=== PATIENT | male | born 1960 | race African-American/Black ===

== ENCOUNTER 2019-03-27 10:38 | Emergency (ER) | payer BC ==
[~2019-03-27] VITALS: Ht 175.3 cm; Wt 115.7 kg
[2019-03-27] MEDS ORDERED: COLCHICINE 0.6 MG TABLET PO ONE ×2 (11:00→12:00)
[2019-03-27] MEDS ORDERED: INDOMETHACIN 25 MG CAPSULE. PO SCH (11:00)
[2019-03-27 11:05] VITALS: BP 136/76
[2019-03-27 11:23] LABS: BASO # 0.1 x10^3/uL (0.0-0.2); BASO % 1 % (0-3); EOS # 0.1 x10^3/uL (0.0-0.7); EOS % 1 % (0-3); HEMOGLOBIN 14.1 g/dL (13.0-17.5); LYMPH # 1.5 x10^3/uL (1.0-4.8); LYMPH % 20 % (24-48); MEAN CORPUSCULAR HEMOGLOBIN 30 pg (25-35); MEAN CORPUSCULAR HGB CONC 34 g/dL (31-37); MEAN CORPUSCULAR VOLUME 89 fL (79-100); MONO # 0.5 x10^3/uL (0.0-1.1); MONO % 7 % (0-9); NEUT # 5.4 x10^3/uL (1.8-7.7); NEUT % 72 % (31-73); PLATELET COUNT 269 x10^3/uL (140-400); RED CELL DISTRIBUTION WIDTH 14.6 % (11.5-14.5); WHITE BLOOD COUNT 7.5 x10^3/uL (4.0-11.0)
--- NOTE | 2019-03-27 11:26 | PHYS DOC ---
Past Medical History Past Medical History: High Cholesterol, Hypertension Additional Past Medical Histor: gout Past Surgical History: Other Additional Past Surgical Histo: cataract Alcohol Use: None Drug Use: None Adult General Chief Complaint Chief Complaint: LOWER EXT PAIN HPI HPI Patient is a 58-year-old male who presents to the emergency department for evaluation of atraumatic left knee pain, which began after getting off work this morning. He denies any injury. Ambulation and flexion and extension of his knee worsens his pain. He has not had fevers or chills, numbness, or weakness. He states he has had a history of gout, and his left foot, but never in his knee. Other than the stated above, there are no alleviating or exacerbating factors to his symptoms. Review of Systems Review of Systems Constitutional: Denies fever or chills [] Eyes: Denies change in visual acuity, redness, or eye pain [] HENT: Denies nasal congestion or sore throat [] Respiratory: Denies cough or shortness of breath [] Cardiovascular: The patient denies any shortness of breath, chest pain, palpitations, or orthopnea [] GI: Denies abdominal pain, nausea, vomiting, bloody stools or diarrhea [] : Denies dysuria or hematuria [] Musculoskeletal: Denies back pain or joint pain, other than the left knee, as noted [] Integument: Denies rash or skin lesions [] Neurologic: Denies headache, focal weakness or sensory changes [] Endocrine: Denies polyuria or polydipsia [] All other systems were reviewed and found to be within normal limits, except as documented in this note. Current Medications Current Medications Current Medications Medications (Trade) Dose Ordered Sig/Genesis Start Time Stop Time Status Last Admin Dose Admin Colchicine (Colcrys) 0.6 mg 1X ONCE 03/27/19 12:00 03/27/19 12:01 DC 03/27/19 12:23 0.6 MG Indomethacin (Indocin) 50 mg BIDWMEALS 03/27/19 11:00 03/27/19 11:34 50 MG Allergies Allergies Allergies Coded Allergies Type Severity Reaction Last Updated Verified No Known Drug Allergies 03/27/19 No Physical Exam Physical Exam PHYSICAL EXAM: CONSTITUTIONAL: Well developed, well nourished HEAD: normocephalic, atraumatic EENT: PERRL, EOMI. Conjunctivae normal color, sclerae non-icteric; moist mucous membranes. NECK: Supple, non-tender; no meningismus. LUNGS: Lungs CTA, breathing even and unlabored. Normal air movement. HEART: Regular rate and rhythm, no murmur CHEST: No deformity; non-tender ABDOMEN: The abdomen is soft, and non-tender, no masses or bruits. EXTREM: There is limited range of motion in the left knee, secondary to pain, but there is no warmth, erythema, or exam evidence of joint effusion. There is diffuse tenderness to palpation of the knee, but no focal bony tenderness. There is no ligamentous laxity to anterior, posterior, medial, or lateral stress. Distal PMS are normal. The remainder the extremities are unremarkable, with normal ROM; no deformity, no calf tenderness. Normal pulses palpable in all extremities. There is no pedal edema. SKIN: No rash; no diaphoresis NEURO: Alert; normal speech and cognition; CN's grossly intact; strength grossly intact without focal deficit. BACK: No CVA TTP. Current Patient Data Vital Signs Vital Signs Date Time Temp Pulse Resp B/P (MAP) Pulse Ox O2 Delivery O2 Flow Rate FiO2 03/27/19 11:05 98.3 76 20 136/76 (96) 97 Room Air 98.3 Lab Values Laboratory Tests Test 03/27/19 11:15 White Blood Count 7.5 x10^3/uL (4.0-11.0) Red Blood Count 4.70 x10^6/uL (4.30-5.70) Hemoglobin 14.1 g/dL (13.0-17.5) Hematocrit 42.0 % (39.0-53.0) Mean Corpuscular Volume 89 fL (79-100) Mean Corpuscular Hemoglobin 30 pg (25-35) Mean Corpuscular Hemoglobin Concent 34 g/dL (31-37) Red Cell Distribution Width 14.6 % (11.5-14.5) H Platelet Count 269 x10^3/uL (140-400) Neutrophils (%) (Auto) 72 % (31-73) Lymphocytes (%) (Auto) 20 % (24-48) L Monocytes (%) (Auto) 7 % (0-9) Eosinophils (%) (Auto) 1 % (0-3) Basophils (%) (Auto) 1 % (0-3) Neutrophils # (Auto) 5.4 x10^3/uL (1.8-7.7) Lymphocytes # (Auto) 1.5 x10^3/uL (1.0-4.8) Monocytes # (Auto) 0.5 x10^3/uL (0.0-1.1) Eosinophils # (Auto) 0.1 x10^3/uL (0.0-0.7) Basophils # (Auto) 0.1 x10^3/uL (0.0-0.2) Erythrocyte Sedimentation Rate 8 (0-15) Sodium Level 141 mmol/L (136-145) Potassium Level 3.9 mmol/L (3.5-5.1) Chloride Level 103 mmol/L (98-107) Carbon Dioxide Level 30 mmol/L (21-32) Anion Gap 8 (6-14) Blood Urea Nitrogen 13 mg/dL (8-26) Creatinine 1.2 mg/dL (0.7-1.3) Estimated GFR (Cockcroft-Gault) 75.0 Glucose Level 132 mg/dL (70-99) H Uric Acid 5.5 mg/dL (3.5-7.2) Calcium Level 8.7 mg/dL (8.5-10.1) C-Reactive Protein, Quantitative 6.5 mg/L (0-3.3) H Laboratory Tests 03/27/19 11:15 Laboratory Tests 03/27/19 11:15 EKG EKG [] Radiology/Procedures Radiology/Procedures PROCEDURE: KNEE BILAT 3V Indications: Knee pain. History of gout. Pain started this a.m. after work. Three-view left knee study: No acute fracture or dislocation or lytic process is evident. There is moderate spurring and mild joint space narrowing of the medial tibiofemoral joint compartment. There is mild spurring without joint space narrowing of the lateral tibiofemoral joint compartment. There is moderate spurring and joint space narrowing of the patellofemoral joint compartment. Small left knee joint effusion is seen. No erosive arthropathy is evident. Right knee: No acute fracture or dislocation or lytic process is seen. There is moderate spurring and mild joint space narrowing of the medial tibiofemoral joint compartment. There is mild spurring without joint space narrowing of the lateral tibial femoral joint compartment. There is moderate spurring and mild joint space narrowing of the patellofemoral joint compartment. No significant right knee joint effusion is seen. There is a prominent synovial osteochondroma or loose body within a Mckeon's cyst in the popliteal fossa measuring 29 mm. There is a loose body within the anterior tibiofemoral joint compartment as seen in the lateral view measuring 12 mm. IMPRESSION: No acute fracture. Tricompartmental primary degenerative osteoarthritis of both knees. 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 Additional loose body of the anterior aspect of the tibiofemoral joint compartment of the right knee is seen. Note: A bilateral knee x-ray was ordered in error, left knee x-ray only was desired.[] Course & Med Decision Making Course & Med Decision Making Pertinent Labs and Imaging studies reviewed. (See chart for details) []12:00 PM: The patient's condition remains stable. I discussed test results, the need for orthopedic follow-up, and return precautions. The exact etiology of his symptoms is unclear. I suspect gout may be at play, although a ligament strain, although there is no history suggestive of this, is possible as well. Dragon Disclaimer Dragon Disclaimer This electronic medical record was generated, in whole or in part, using a voice recognition dictation system. Departure Departure Impression: Primary Impression: Knee pain Additional Impressions: Gout Arthritis Disposition: 01 HOME, SELF-CARE Condition: STABLE Referrals: YAMIL CAROLINA MD (PCP) ANJU TREJO MD Patient Instructions: Arthralgia, Gout, Knee Immobilizer, [id number], Knee Pain Scripts Oxycodone HCl/Acetaminophen (Percocet 5-325 mg Tablet) 1 Each Tablet 1 TAB PO PRN TID PRN for Pain not otherwise controlled MDD 3 Tablet(s) for 5 Days, #20 TAB 0 Refills Prov: YAMIL ANDRES MD 03/27/19 Colchicine (COLCRYS) 0.6 Mg Tablet 1 TAB PO BID for gout pain for 30 Days, #60 TAB 0 Refills Prov: YAMIL ANDRES MD 03/27/19 Indomethacin (INDOMETHACIN) 50 Mg Capsule 1 CAP PO TID for arthritis for 10 Days, #30 CAP 0 Refills with food Prov: YAMIL ANDRES MD 03/27/19 Problem Qualifiers YAMIL ANDRES MD Mar 27, 2019 11:26
[2019-03-27 11:40] LABS: CALCIUM 8.7 mg/dL (8.5-10.1); CREATININE 1.2 mg/dL (0.7-1.3); POTASSIUM 3.9 mmol/L (3.5-5.1)
[2019-03-27 11:42] LABS: C-REACTIVE PROTEIN 6.5 mg/L (0-3.3); URIC ACID 5.5 mg/dL (3.5-7.2)
--- NOTE | 2019-03-27 11:46 | RAD ---
Indications: Knee pain. History of gout. Pain started this a.m. after work. Three-view left knee study: No acute fracture or dislocation or lytic process is evident. There is moderate spurring and mild joint space narrowing of the medial tibiofemoral joint compartment. There is mild spurring without joint space narrowing of the lateral tibiofemoral joint compartment. There is moderate spurring and joint space narrowing of the patellofemoral joint compartment. Small left knee joint effusion is seen. No erosive arthropathy is evident. Right knee: No acute fracture or dislocation or lytic process is seen. There is moderate spurring and mild joint space narrowing of the medial tibiofemoral joint compartment. There is mild spurring without joint space narrowing of the lateral tibial femoral joint compartment. There is moderate spurring and mild joint space narrowing of the patellofemoral joint compartment. No significant right knee joint effusion is seen. There is a prominent synovial osteochondroma or loose body within a Mckeon's cyst in the popliteal fossa measuring 29 mm. There is a loose body within the anterior tibiofemoral joint compartment as seen in the lateral view measuring 12 mm. IMPRESSION: No acute fracture. Tricompartmental primary degenerative osteoarthritis of both knees. 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 Additional loose body of the anterior aspect of the tibiofemoral joint compartment of the right knee is seen. Electronically signed by: Aryan Cornejo MD (03/27/2019 11:43 AM) [id number]
[2019-03-27] MEDS ORDERED: COLC0.6T34 PO (12:52)
[2019-03-27] MEDS ORDERED: OXYC-325 PO (12:52)
[2019-03-27] MEDS ORDERED: INDO50CA15 PO (12:52)
== END 2019-03-27 13:11 | disposition home or self-care (01) ==
LOC: ER 10:38
DX: M17.0 Bilateral primary osteoarthritis of knee (principal); M25.562 Pain in left knee; M10.9 Gout, unspecified; E78.00 Pure hypercholesterolemia, unspecified; I10 Essential (primary) hypertension; Z87.39 Personal history of other diseases of the musculoskeletal system and connective tissue; Z98.890 Other specified postprocedural states; Z79.899 Other long term (current) drug therapy
CPT/HCPCS: 36415; 73562; 80048; 84550; 85025; 85651; 86140; 99285